=== PATIENT | female | born 1960 | race Caucasian/White ===

== ENCOUNTER 2018-01-06 14:50 | Emergency (ER) | payer SELFPAY ==
[2018-01-06 15:02] VITALS: BP 158/87
--- NOTE | 2018-01-06 16:37 | ER Document Report ---
HPI - HPI Patient complains to provider of: something stuck in throat Onset: Other - 8:30 this am Pain Level: 2 Context: 57 yo female states that she felt like something stuck in left side of throat while eating a bisquit and drank sips of water at 8:30 this am. She vomited miucous during the day and wasn't able to eat, was able to drink water. Since she threw up twice in the ER the sensation is now gone and is able to eat and drink normally. No recent URI or fever. No chest pain or sob. No abd. pain. Hx GERD. Associated Symptoms: None Exacerbated by: Denies Relieved by: Denies - ROS ROS below otherwise negative: Yes Systems Reviewed and Negative: Yes All other systems reviewed and negative - EENT EENT: REPORTS: Sore Throat - REPRODUCTIVE Reproductive: DENIES: : Past Medical History - General Information source: Patient - Social History Smoking Status: Never Smoker Chew tobacco use (# tins/day): No Frequency of alcohol use: None Drug Abuse: None Lives with: Family Family History: Reviewed & Not Pertinent Patient has suicidal ideation: No Patient has homicidal ideation: No Renal/ Medical History: Denies: Hx Peritoneal Dialysis GI Medical History: Reports: Hx Gastroesophageal Reflux Disease Surgical Hx: Negative - Immunizations Hx Diphtheria, Pertussis, Tetanus Vaccination: Yes Vertical Provider Document - CONSTITUTIONAL Agree With Documented VS: Yes Exam Limitations: No Limitations General Appearance: No Apparent Distress - INFECTION CONTROL TRAVEL OUTSIDE OF THE [place] IN LAST 30 DAYS: No - HEENT HEENT: Normal ENT Exam - NECK Neck: Supple. negative: Lymphadenopathy-Left, Lymphadenopathy-Right - RESPIRATORY Respiratory: Breath Sounds Normal, No Respiratory Distress - CARDIOVASCULAR Cardiovascular: Regular Rate, Regular Rhythm - GI/ABDOMEN Gastrointestinal: Abdomen Soft, Abdomen Non-Tender Course - Vital Signs Vital signs: Temp Pulse Resp BP Pulse Ox 98.6 F 77 16 158/87 H 99 01/06/18 15:01 01/06/18 15:01 01/06/18 15:01/06/18 15:01/06/18 15:01 Discharge - Discharge Clinical Impression: Resolved food bolus Condition: Good Disposition: HOME, SELF-CARE Instructions: Sore Throat ([facility]) Additional Instructions: Eat small amounts and to well before you swallow Return to the emergency room for any sensation of water, food, or mucus not passing this evening or any concerns
== END 2018-01-06 17:20 | disposition home or self-care (01) ==
LOC: ER 14:50
DX: T18.9XXA Foreign body of alimentary tract, part unspecified, initial encounter (principal); X58.XXXA Exposure to other specified factors, initial encounter; R11.10 Vomiting, unspecified; J02.9 Acute pharyngitis, unspecified; Z87.19 Personal history of other diseases of the digestive system
CPT/HCPCS: 99283

== ENCOUNTER 2020-06-17 01:28 | Emergency (ER) | payer SELFPAY ==
[2020-06-17] MEDS ORDERED: ONDANSETRON HCL INJ/PF 4 MG/2 ML SDV IV ONE (01:54)
[2020-06-17] MEDS ORDERED: NORMAL SALINE 1000 ML 1,000 ML IV ONE (01:54)
[2020-06-17 02:41] LABS: ABSOLUTE LYMPHOCYTES (AUTO) 0.5 10^3/uL (0.5-4.7); ABSOLUTE MONOCYTES (AUTO) 0.4 10^3/uL (0.1-1.4); ABSOLUTE NEUT (AUTO) 7.8 10^3/uL (1.7-8.2); BASOPHILS % (AUTO) 0.3 % (0-2); EOSINOPHILS % (AUTO) 0.4 % (0-6); HEMATOCRIT 39.3 % (36.0-47.0); HEMOGLOBIN 13.3 g/dL (12.0-15.5); LYMPHOCYTES % (AUTO) 5.3 % (13-45); MEAN CORPUSCULAR HEMOGLOBIN 29.1 pg (27.0-33.4); MEAN CORPUSCULAR HGB CONC 33.9 g/dL (32.0-36.0); MEAN CORPUSCULAR VOLUME 86 fl (80-97); MONOCYTES % (AUTO) 4.9 % (3-13); PLATELET COUNT 338 10^3/uL (150-450); RED BLOOD COUNT 4.58 10^6/uL (3.72-5.28); RED CELL DISTRIBUTION WIDTH 13.3 % (11.5-14.0); SEGMENTED NEUTROPHILS % (AUTO) 89.1 % (42-78); TOTAL CELLS COUNTED % (AUTO) 100 %; WHITE BLOOD COUNT 8.8 10^3/uL (4.0-10.5)
[2020-06-17 03:02] LABS: ALBUMIN 4.2 g/dL (3.5-5.0); ALKALINE PHOSPHATASE 108 U/L (38-126); ANION GAP 8 (5-19); ASPARTATE AMINO TRANSFERASE 42 U/L (14-36); BILIRUBIN,DIRECT 0.3 mg/dL (0.0-0.4); BILIRUBIN,TOTAL 0.7 mg/dL (0.2-1.3); BLOOD UREA NITROGEN 9 mg/dL (7-20); CALCIUM 9.6 mg/dL (8.4-10.2); CARBON DIOXIDE 27 mmol/L (22-30); CHLORIDE 107 mmol/L (98-107); GLUCOSE 137 mg/dL (75-110); POTASSIUM 4.2 mmol/L (3.6-5.0)
--- NOTE | 2020-06-17 03:27 | ER Document Report ---
ED General - General Chief Complaint: General Weakness Stated Complaint: LOW PULSE,NAUSEA,LIGHTHEADED Time Seen by Provider: 06/17/20 03:22 Mode of Arrival: Ambulatory Information source: Patient Notes: 59-year-old female who denies any previous medical history presents to the emergency room complaining of nausea with vomiting that started around 10 AM this morning. States she has been unable to tolerate any p.o. food or fluids all day. Patient states that she took one of her mother's morphine 15 mg tablets around 6 AM this morning for tooth ache and was instructed that was causing her symptoms. She states that around 5 PM she reported pulse ox that she has on her finger and noticed that her heart rate was 60 and occasionally would go down into the mid 50 range. Patient states she got concerned and came to the emergency room. She denies any chest pain, shortness of breath, no difficulty breathing. Did not take any other medications for her symptoms. TRAVEL OUTSIDE OF THE [place] IN LAST 30 DAYS: No - Related Data Allergies/Adverse Reactions: No Known Allergies Allergy (Verified 01/06/18 14:53) Past Medical History - General Information source: Patient - Social History Smoking Status: Never Smoker Frequency of alcohol use: None Drug Abuse: None Family History: Reviewed & Not Pertinent Renal/ Medical History: Denies: Hx Peritoneal Dialysis GI Medical History: Reports: Hx Gastroesophageal Reflux Disease - Immunizations Hx Diphtheria, Pertussis, Tetanus Vaccination: Yes Review of Systems - Review of Systems Constitutional: No symptoms reported EENT: Dental problem Cardiovascular: No symptoms reported Respiratory: No symptoms reported Gastrointestinal: Nausea, Vomiting. denies: Abdominal pain, Diarrhea, Constipation Genitourinary: No symptoms reported Musculoskeletal: No symptoms reported Skin: No symptoms reported Neurological/Psychological: No symptoms reported -: Yes All other systems reviewed and negative Physical Exam - Vital signs Vitals: Temp Pulse Resp BP Pulse Ox 98 F 73 17 169/74 H 95 06/17/20 01:43 06/17/20 01:43 06/17/20 01:43 06/17/20 01:43 06/17/20 01:43 - Notes Notes: GENERAL: Mild acute distress, non-toxic appearance. HEAD: Normal with no signs of head trauma. EYES: PERRLA, EOMI, conjunctiva normal, no discharge. EARS: Hearing grossly intact. NOSE: Normal. THROAT: Oropharynx is normal. NECK: Normal range of motion, no tenderness, supple, no lymphadenopathy, No adenopathy, no JVD. CHEST: Clear breath sounds bilaterally. No wheezes, rales, or rhonchi. CARDIAC: Regular rate and rhythm. S1 and S2, without murmurs, gallops, or rubs. VASCULAR: No Edema. Peripheral pulses normal and equal in all extremities. ABDOMEN: Normal and soft with no tenderness, no masses or pulsatile masses. No organomegaly. Positive bowel sounds x4. No CVA tenderness noted bilaterally. GASTROINTESTINAL: Bowel sounds normal LYMPATHTIC: No lymphadenopathy noted. MUSCULOSKELETAL: Good range of motion of all major joints. Extremities without clubbing, cyanosis or edema. NEUROLOGICAL: Alert and oriented x 3. No focal sensory or strength deficits. Speech normal. Follows commands appropriately. PSYCHIATRIC: Normal Affect, judgement and mood. SKIN: Normal appearance with no rashes or lesions. Course - Re-evaluation Re-evalutation: 06/17/20 03:38 Patient is currently resting comfortably no acute distress. States her nausea has resolved after receiving IV Zofran and a liter of fluids. Reviewed EKG and initial labs with patient. Vital signs are stable. Aware that we are waiting on urinalysis prior to being able to discharge the patient. Discussed heart rates with patient and that her heart rate currently is stable could have been due to dehydration from nausea vomiting that made her heart rate go down. Is currently been running in the high 60s without any ectopy noted on environmental monitoring technician. Will reevaluate after urinalysis complete. 06/17/20 05:06 Patient is resting comfortably she remains pain-free. Nausea has resolved. Tolerates p.o. fluids without difficulty. Vital signs are stable. Heart rate has remained in the high 60s to low 70s. Denies any chest pain, shortness of breath, difficulty breathing. Currently asymptomatic. Patient was counseled not to take medications that were prescribed for somebody else in the future. Take Zofran as needed for nausea. Outpatient follow-up with a primary care physician if not improving in 2 to 3 days. On-call physician was provided. Patient was given strict return to the emergency room guidelines. Return for any new or worsening symptoms. All questions were answered. Patient verbalized understanding and agrees with plan of care. 06/17/20 05:07 - Vital Signs Vital signs: Temp Pulse Resp BP Pulse Ox 98 F 73 14 147/86 H 93 06/17/20 01:43 06/17/20 01:43 06/17/20 04:01 06/17/20 04:01 06/17/20 04:01 - Laboratory Results Result Diagrams: 06/17/20 02:18 06/17/20 02:18 Laboratory Results Interpreted: 06/17/20 06/17/20 02:18 02:18 Lymph % (Auto) 5.3 L Seg Neutrophils % 89.1 H Glucose 137 H AST 42 H ALT 42 H Critical Laboratory Results Reviewed: No Critical Results - Radiology Results Critical Radiology Results Reviewed: No Critical Results - EKG Interpretation by Co EKG shows normal: Sinus rhythm Additional EKG results interpreted by de: 06/17/20 03:26 EKG was interpreted by ER physician Dr. Moore No acute STEMI Normal sinus rhythm Rate of 68 Probable left atrial abnormality No ST wave abnormalities 06/17/20 03:26 Discharge - Discharge Clinical Impression: Bradycardia Nausea and vomiting Qualifiers: Vomiting type: unspecified Vomiting Intractability: non-intractable Qualified Code(s): R11.2 - Nausea with vomiting, unspecified Condition: Stable Disposition: HOME, SELF-CARE Instructions: Vomiting ([facility]) Additional Instructions: Encourage fluids. Zofran as needed for nausea. Avoid taking medications are not prescribed to you. Outpatient follow-up with a primary care physician as discussed. Return to the emergency room for any new or worsening symptoms. Referrals: NE MOSLEY MD [ACTIVE STAFF] - Follow up as needed
[2020-06-17 05:07] VITALS: BP 114/97
[2020-06-17] MEDS ORDERED: ONDANSETRON ODT 4 MG TAB (6 TAB/ER DISP) PO PRN (05:09)
--- NOTE | 2020-06-17 22:35 | EKG REPORT ---
SEVERITY:- BORDERLINE ECG - SINUS RHYTHM PROBABLE LEFT ATRIAL ABNORMALITY : Confirmed by: Althea Aparicio 17-Jun-2020 22:34:44
== END 2020-06-17 05:15 | disposition home or self-care (01) ==
LOC: ER 01:28
DX: R11.2 Nausea with vomiting, unspecified (principal); R00.1 Bradycardia, unspecified; K08.89 Other specified disorders of teeth and supporting structures
CPT/HCPCS: 93005; 99284; 96361; 96374; 36415; 85025; 80053; 93010; J2405; J7030